=== PATIENT | male | born 1990 | race Two or more races ===

== ENCOUNTER 2024-06-27 15:11 | Emergency (ER) | payer OTHER ==
[~2024-06-27] VITALS: Ht 167.6 cm; Wt 88.5 kg
[2024-06-27 15:44] VITALS: BP 149/80; TEMP 98.2; O2SAT 98
[2024-06-27] MEDS ORDERED: LIDOCAINE 1%-EPI 1:100,000 20 ML VIAL ONE (16:17)
== END 2024-06-27 17:06 | disposition home or self-care (01) ==
LOC: ER 15:19
DX: S01.81XA Laceration without foreign body of other part of head, initial encounter (principal); W22.8XXA Striking against or struck by other objects, initial encounter; Y93.89 Activity, other specified; Y92.89 Other specified places as the place of occurrence of the external cause; Y99.8 Other external cause status
CPT/HCPCS: 12013; 99282; A6403; J3490